=== PATIENT | female | born 1955 | race African-American/Black ===

== ENCOUNTER 2022-12-10 04:36 | Inpatient (IN) | payer MEDICARE, SELFPAY ==
[~2022-12-10] VITALS: Ht 165.1 cm; Wt 65.0 kg
[2022-12-10] MEDS ORDERED: ALBUTEROL (0.083%) 2.5MG/3ML NEB HHN STA (05:16)
[2022-12-10] MEDS ORDERED: ASPIRIN 325MG EC TABLET PO ONE (05:30)
[2022-12-10 05:34] LABS: BASOPHILS % 0.5 % (0.0-2.0); EOSINOPHILS % 0.9 % (0.0-5.0); HEMATOCRIT. 39.4 % (36.0-48.0); HEMOGLOBIN. 12.9 g/dL (12.0-16.0); LYMPHOCYTES % 21.3 % (20.0-50.0); MEAN CORPUSCULAR HEMOGLOBIN 29.6 pg (28.0-32.0); MEAN CORPUSCULAR VOLUME 90.4 fL (81.0-99.0); MEAN PLATELET VOLUME 8.9 fl (7.4-10.4); MONOCYTES % 5.4 % (2.0-8.0); NEUTROPHILS % 71.9 % (40.0-76.0); PLATELET 270 x1000/uL (130-400); RED BLOOD CELL COUNT 4.36 mill/uL (4.2-5.4); RED CELL DISTRIBUTION WIDTH 15.7 % (11.6-14.6)
[2022-12-10 05:37] LABS: CHLORIDE 110 mEq/L (98-107)
[2022-12-10] MEDS ORDERED: POTASSIUM CHLORIDE 20MEQ TABLET SR PO ONE (07:00)
[2022-12-10] MEDS ORDERED: FUROSEMIDE 40MG/4ML VIAL IVP ONE (07:00)
[2022-12-10] MEDS ORDERED: IPRATROPIUM/ALBUTEROL 0.5-3(2.5)MG/3ML NEB NEB PRN (10:15)
[2022-12-10] MEDS ORDERED: NA PHOS,M-B/NA PHOS,DI-BA ENEMA 118ML PR PRN (10:15)
[2022-12-10] MEDS ORDERED: ACETAMINOPHEN 325MG TABLET PO PRN ×2 (10:15)
[2022-12-10] MEDS ORDERED: KETOROLAC 15MG/ML VIAL IV PRN (10:15)
[2022-12-10] MEDS ORDERED: CLONIDINE 0.1MG TABLET PO PRN (10:15)
[2022-12-10] MEDS ORDERED: GUAIFENESIN 200MG/10ML SUGAR FREE UDC PO PRN (10:15)
[2022-12-10] MEDS ORDERED: DOCUSATE SODIUM 100MG CAPSULE PO PRN (10:15)
[2022-12-10] MEDS ORDERED: FUROSEMIDE 100MG/10ML VIAL IVP SCH (10:15)
[2022-12-10] MEDS ORDERED: NITROGLYCERIN 0.4MG TABLET SL SL PRN (10:15)
[2022-12-10] MEDS ORDERED: ZOLPIDEM TARTRATE 5MG TABLET PO PRN (10:15)
[2022-12-10] MEDS ORDERED: MAGNESIUM/ALUMINUM HYDROXIDE/SIMETHICONE 30ML UDC PO PRN (10:15)
[2022-12-10] MEDS ORDERED: ONDANSETRON HCL 4MG/2ML INJ IV PRN (10:15)
[2022-12-10] MEDS: ENOXAPARIN 40MG/0.4ML SYR SUBCUT SCH (14:49)
[2022-12-10 14:54] LABS: VITAMIN B12 SERUM 656 pg/mL (211-911)
[2022-12-10 15:24] LABS: ETHANOL BLOOD < 10 mg/dL; HDL CHOLESTEROL 69 mg/dL (40-59); LDL CHOLESTEROL 78 mg/dL (5-100); T4 FREE 1.04 ng/dL (0.76-1.46); TOTAL IRON BINDING CAPACITY 297 ug/dL (250-450)
[2022-12-10] MEDS: FUROSEMIDE 40MG/4ML VIAL IVP SCH (18:48)
[2022-12-10] MEDS: SPIRONOLACTONE 25MG TABLET PO SCH (18:48)
[2022-12-10] MEDS: FAMOTIDINE 20MG TABLET PO SCH (21:24)
[2022-12-10] MEDS: GUAIFENESIN 600MG ER TABLET PO SCH (21:46)
[2022-12-10 23:28] LABS: *AMPHETAMINES SCREEN URINE NEGATIVE (NEGATIVE); *BARBITURATES SCREEN URINE NEGATIVE (NEGATIVE); *BENZODIAZEPINES SCREEN URINE NEGATIVE (NEGATIVE); *COCAINE SCREEN URINE NEGATIVE (NEGATIVE); CANNABINOID URINE SCREEN NEGATIVE (NEGATIVE); METHADONE URINE SCREEN NEGATIVE (NEGATIVE); OPIATES URINE SCREEN NEGATIVE (NEGATIVE); PHENCYCLIDINE URINE SCREEN NEGATIVE (NEGATIVE)
[2022-12-11 00:34] LABS: CREATINE KINASE MB FRACTION 2.8 ng/mL (0.5-3.6)
[2022-12-11 05:33] LABS: BASOPHILS % 1.1 % (0.0-2.0); EOSINOPHILS % 0.9 % (0.0-5.0); HEMOGLOBIN. 11.8 g/dL (12.0-16.0); LYMPHOCYTES % 31.6 % (20.0-50.0); MEAN CORPUSCULAR HEMOGLOBIN 30.3 pg (28.0-32.0); MEAN CORPUSCULAR VOLUME 90.1 fL (81.0-99.0); MEAN PLATELET VOLUME 8.1 fl (7.4-10.4); MONOCYTES % 9.6 % (2.0-8.0); NEUTROPHILS % 56.8 % (40.0-76.0); PLATELET 225 x1000/uL (130-400); RED BLOOD CELL COUNT 3.89 mill/uL (4.2-5.4); RED CELL DISTRIBUTION WIDTH 15.5 % (11.6-14.6)
[2022-12-11 05:39] LABS: CHLORIDE 109 mEq/L (98-107)
[2022-12-11 05:53] LABS: PHOSPHORUS 3.7 mg/dL (2.5-4.9)
[2022-12-11] MEDS: FUROSEMIDE 40MG/4ML VIAL IVP SCH (06:53)
[2022-12-11] MEDS: SPIRONOLACTONE 25MG TABLET PO SCH (06:53)
[2022-12-11] MEDS ORDERED: ASPIRIN 81MG EC TABLET PO SCH (09:00)
[2022-12-11] MEDS ORDERED: ASPIRIN 325MG EC TABLET PO SCH (09:00)
[2022-12-11] MEDS: GUAIFENESIN 600MG ER TABLET PO SCH (09:55)
[2022-12-11] MEDS: FAMOTIDINE 20MG TABLET PO SCH (09:56)
[2022-12-11] MEDS: ENOXAPARIN 40MG/0.4ML SYR SUBCUT SCH (10:30)
[2022-12-11 14:20] VITALS: BP 123/80
[2022-12-11] MEDS ORDERED: ALBUTEROL (0.083%) 2.5MG/3ML NEB HHN PRN (16:30)
[2022-12-11] MEDS ORDERED: IPRATROPIUM BROMIDE (0.02%) 0.5MG/2.5ML NEB HHN PRN (16:30)
== END 2022-12-11 16:55 | disposition left against medical advice (07) | DRG 280 ==
LOC: ER 04:41 → MICUSO 07:59 → EDBEDREQTM 08:03 → EDBEDREQ 08:03 → 7EST 12-11 16:21
PROVIDERS: ADMIT Internal Medicine; ATTEND Internal Medicine
DX: I11.0 Hypertensive heart disease with heart failure (principal); I21.4 Non-ST elevation (NSTEMI) myocardial infarction; I50.43 Acute on chronic combined systolic (congestive) and diastolic (congestive) heart failure; J96.01 Acute respiratory failure with hypoxia; J45.909 Unspecified asthma, uncomplicated; E78.5 Hyperlipidemia, unspecified; E87.6 Hypokalemia; K21.9 Gastro-esophageal reflux disease without esophagitis; R74.01 Elevation of levels of liver transaminase levels; Z53.29 Procedure and treatment not carried out because of patient's decision for other reasons; Z82.49 Family history of ischemic heart disease and other diseases of the circulatory system
CPT/HCPCS: 36415; 71045; 80053; 80061; 80305; 80320; 82550; 82553; 82607; 82746; 83036; 83540; 83550; 83735; 83880; 84100; 84439; 84443; 84484; 85025; 85379; 93005; 93306; 93970; 94640; 99285; J1650; J1940; G0480